=== PATIENT | female | born 1965 | race Caucasian/White ===

== ENCOUNTER 2017-11-06 17:02 | Inpatient (IN) | payer MEDICAID ==
[~2017-11-06] VITALS: Ht 165.1 cm; Wt 54.9 kg
[2017-11-06 17:26] VITALS: BP 125/72
--- NOTE | 2017-11-06 17:35 | NUR ---
pt to lobby awaiting room for MSE. SHANNAN. LAUREN.
--- NOTE | 2017-11-06 19:10 | NUR ---
PT TAKEN TO BED 2.
--- NOTE | 2017-11-06 19:30 | NUR ---
52Y/F PRESENTS TO ER C/O N/V/D. PER PT SHE DRINKS "SIX TALL CANS" OF BEER A DAY AND ALSO DRINKS TEQUILA. SHE HAS HAD VOMITING AND DIARRHEA FOR "COUPLE MONTHS". PT STATES SHE HAS BLOOD IN HER VOMIT AND DIARRHEA. PT ALSO STATES SHE HAS HAD "1 WORM FROM NOSE AND 3 WORMS FROM VAGINA" RECENTLY. NO VOMITING, BLEEDING, OR WORMS NOTED AT THIS TIME. PT IS ANXIOUS IN BED , PT STATES FROM NOT DRINKING TODAY. ABD IS ROUND, SOFT, NON TENDER, ACTIVE BS X4. BL LUNG SOUNDS CLEAR THROUGH OUT, RR EVEN AND UNLABORED. PT AA&OX4, LAYING IN BED, NEICE AT BEDSIDE, VSS, ER MD AWARE OF PT STATUS.
[2017-11-06] MEDS ORDERED: OCTREOTIDE ACETATE 100 MCG/ML VIAL IV ONE (20:20)
[2017-11-06 20:37] LABS: CARBON DIOXIDE 24.6 mmol/L (21-32); CREATININE 0.7 mg/dL (0.6-1.3); POTASSIUM 3.6 mmol/L (3.5-5.1)
[2017-11-06 20:42] LABS: ALBUMIN 2.2 g/dL (3.4-5.0); TOTAL BILIRUBIN 5.1 mg/dL (0.0-1.0)
[2017-11-06] MEDS ORDERED: NACL 0.9% 500 ML IV SCH (20:55)
--- NOTE | 2017-11-06 21:00 | NUR ---
TESSA BAUER SUP. CALLED FOR SANDOSTATIN MEDICATION.
--- NOTE | 2017-11-06 21:15 | NUR ---
PER BHAVANA PT IS A FLIGHT RISK AND HAS BEEN HOSPITALIZED BEFORE AND LEFT AMA, BHAVANA IS CONCERNED THAT SHE WILL DO THE SAME AGAIN, I REASSURED BHAVANA I WOULD TELL STAFF OF THIS INFORMATION.
--- NOTE | 2017-11-06 21:20 | NUR ---
Patient will be admitted to care of [facility]. Admited to TELE. Will go to room 119B . Belongings list completed. Report to LAYLA. I INFORMED LAYLA OF PT'S PREVIOUS ATTEMPT TO LEAVE HOSPITAL.
[2017-11-06 21:30] VITALS: BP 110/63
--- NOTE | 2017-11-06 21:30 | NUR ---
PT ARRIVED TO UNIT VIA GURNEY. RECEIVED REPORT AT BEDSIDE FROM THEATRICAL TROUPER NADER. PT A/OX4 ON ROOM AIR. PT HAS A 20G IV TO RIGHT FOREARM, INFUSING NS ON AN OPEN LINE. SKIN INTACT. SAFETY PRECAUTIONS IN PLACE. UPDATED BOARD. VITAL SIGNS WITHIN NORMAL LIMITS. PT IN STABLE CONDITION, NO SIGNS OF DISTRESS NOTED. BED IN LOW POSITION, CALL LIGHT WITHIN REACH. WILL CONTINUE TO MONITOR.
--- NOTE | 2017-11-06 21:35 | NUR ---
LIZETTE ZARATE CALLED AGAIN, MEDICATION NOT AVAILABLE PER HER.
[2017-11-06 21:40] LABS: APPEARANCE,URINE SL CLOUDY (CLEAR); BILIRUBIN,URINE 1+ (NEGATIVE); BLOOD, URINE NEGATIVE (NEGATIVE); COLOR,URINE YELLOW (YELLOW); LEUKOCYTE ESTERASE ,URINE NEGATIVE (NEGATIVE); NITRITE, URINE NEGATIVE (NEGATIVE); UGLUCOSE NEGATIVE (NEGATIVE)
--- NOTE | 2017-11-06 21:40 | NUR ---
HOUSE SUP. NOTIFIED OF PT BEING TRANSFERRED TO FLOOR, WILL TAKE MEDICATION TO NURSE ON FLOOR .
[2017-11-06] MEDS ORDERED: OCTREOTIDE ACETATE 1000 MCG/5 ML VIAL ONE ×2 (21:52→21:55)
[2017-11-06 22:07] LABS: RBC,URINE NONE SEEN /HPF (0-5); WBC,URINE 0-5 (RARE) /HPF (0-5)
--- NOTE | 2017-11-06 22:15 | NUR ---
SPOKE TO DR SANTOYO ABOUT PT REQUESTING SLEEP MEDICATION, AND ABOUT THE SANDOSTATIN BEING ORDERED VIA IV WHEN WE ONLY HAVE SQ. AGREED TO ORDER SLEEP MEDICATION AND CHANGE SANDOSTATIN ROUTE.
[2017-11-06] MEDS ORDERED: LACTULOSE 20 GM/30 ML UDC PO SCH (22:40)
[2017-11-06] MEDS ORDERED: LORazepam 0.5 MG TAB PO PRN (22:45)
[2017-11-06] MEDS ORDERED: LORazepam 2 MG/ML VIAL IVP PRN (22:45)
[2017-11-06 23:00] VITALS: BP 117/68
[2017-11-06] MEDS: NACL 0.9% 1,000 ML IV SCH (23:02)
[2017-11-06] MEDS ORDERED: OCTREOTIDE ACETATE 100 MCG/ML VIAL SUBQ ONE (23:20)
[2017-11-06] MEDS: traZODone 50 MG TAB PO SCH (23:39)
[2017-11-07 00:01] LABS: PROTHROMBIN TIME 14.5 secs (10.8-13.4)
[2017-11-07 00:03] LABS: FREE T4 (FREE THYROXINE) 1.73 ng/dL (0.76-1.46); MAGNESIUM 1.5 mg/dL (1.8-2.4); PHOSPHORUS 2.2 mg/dL (2.5-4.9); THYROID STIMULATING HORMONE 6.74 uIU/mL (0.34-3.74)
--- NOTE | 2017-11-07 00:15 | NUR ---
VITAL SIGNS WITHIN NORMAL LIMITS. PT IN STABLE CONDITION, NO SIGNS OF DISTRESS NOTED. BED IN LOW POSITION, CALL LIGHT WITHIN REACH. WILL CONTINUE TO MONITOR.
[2017-11-07] MEDS: chlordiazePOXIDE 25 MG CAP PO PRN (00:20)
[2017-11-07 02:25] LABS: BARBITURATE, URINE NEG. ng/ml (NEG <=200); BENZODIAZEPINE, URINE NEG. ng/mL (NEG <=200); CANNABINOID, URINE NEG. ng/mL (NEG <=50); COCAINE, URINE NEG. ng/mL (NEG <=300); OPIATE, URINE NEG. ng/mL (NEG <=2000); PHENCYCLIDINE SCREEN,URINE NEG. ng/mL (NEG <=25)
[2017-11-07 03:45] LABS: HEMOGLOBIN 9.6 g/dL (12.0-16.0); MEAN CORPUSCULAR HEMOGLOBIN 32 pg (27-31); MEAN CORPUSCULAR HGB CONC 33 g/dL (33-37); MEAN CORPUSCULAR VOLUME 96 fL (80-94); RED BLOOD CELL COUNT(AUTO) 3.01 MIL/uL (4.20-5.40); WHITE BLOOD COUNT (AUTO) 20.8 K/uL (4.8-10.8)
[2017-11-07 03:46] LABS: PLATELET COUNT (AUTO) 175 K/uL (140-450); RED CELL DISTRIBUTION WIDTH 16.6 % (11.6-13.7)
[2017-11-07 03:48] LABS: EOSINOPHILS % (MANUAL) 1 % (0-4); LYMPHOCYTES % (MANUAL) 8 % (20-46); MONOCYTES % (MANUAL) 11 % (5-12)
[2017-11-07 04:00] VITALS: BP 107/62
[2017-11-07] MEDS: LORazepam 1 MG TAB PO SCH ×3 (04:18→20:36)
--- NOTE | 2017-11-07 04:30 | NUR ---
VITAL SIGNS WITHIN NORMAL LIMITS. PT IN STABLE CONDITION, NO SIGNS OF DISTRESS NOTED. BED IN LOW POSITION, CALL LIGHT WITHIN REACH. WILL CONTINUE TO MONITOR.
[2017-11-07] MEDS ORDERED: MAG SULF 2000 MG/WATER PREMIX 50 ML IV ONE (04:50)
[2017-11-07] MEDS ORDERED: SODIUM PHOS / POTASSIUM PHOS 1 PKT PDR PO ONE (04:50)
--- NOTE | 2017-11-07 07:33 | NUR ---
ENDORSED PT IN STABLE CONDITION TO DAY SHIFT RN FOR CONTINUITY OF CARE.
[2017-11-07 07:42] LABS: BASOPHILS % (AUTO) 0.2 % (0.0-2.0); EOSINOPHILS # (AUTO) 0.2 K/uL (0-0.4); EOSINOPHILS % (AUTO) 1.2 % (0.0-4.0); HEMATOCRIT 27.5 % (36-48); HEMOGLOBIN 9.7 g/dL (12.0-16.0); LYMPHOCYTES # (AUTO) 1.3 K/uL (2.5-16.5); LYMPHOCYTES % (AUTO) 7.8 % (20.5-51.1); MEAN CORPUSCULAR HEMOGLOBIN 33 pg (27-31); MEAN CORPUSCULAR HGB CONC 35 g/dL (33-37); MEAN CORPUSCULAR VOLUME 93 fL (80-94); MONOCYTES # (AUTO) 1.1 K/uL (0.8-1.0); MONOCYTES % (AUTO) 6.4 % (1.7-9.3); NEUTROPHILS # (AUTO) 14.3 K/uL (1.8-7.7); NEUTROPHILS % (AUTO) 84.4 % (42.2-75.2); PLATELET COUNT (AUTO) 156 K/uL (140-450); RED BLOOD CELL COUNT(AUTO) 2.96 MIL/uL (4.20-5.40); RED CELL DISTRIBUTION WIDTH 15.9 % (11.6-13.7); WHITE BLOOD COUNT (AUTO) 16.9 K/uL (4.8-10.8)
[2017-11-07 07:58] LABS: ANION GAP 10.8 (8-16); CHOL/HDL RATIO 29.9 (1-4.5); CREATININE 0.6 mg/dL (0.6-1.3); MAGNESIUM 1.9 mg/dL (1.8-2.4); PHOSPHORUS 3.4 mg/dL (2.5-4.9); POTASSIUM 3.8 mmol/L (3.5-5.1)
[2017-11-07 08:00] VITALS: BP 114/70
--- NOTE | 2017-11-07 08:00 | NUR ---
RECEIVED PATIENT AT BEDSIDE, ALERT AWAKE ORIENTED X4, NOT IN ANY DISTRESS NOTED. DENIES PAIN AT THIS TIME, NO NAUSEA AND VOMITING NOTED. WITH IVF ON GOING AND INFUSING WELL. INITIAL ASSESSMENT INITIATED. CALL LIGHT WITHIN REACH, NEEDS ATTENDED, WILL CONTINUE TO MONITOR.
--- NOTE | 2017-11-07 08:30 | NUR ---
SEEN BY DR. GREENE AND DISCUSSED PLAN OF CARE WITH THE PATIENT AND FAMILY AT BEDSIDE. PATIENT STILL ON NPO, WAITING FOR GI CONSULT.
[2017-11-07] MEDS ORDERED: LACTULOSE 20 GM/30 ML UDC PO SCH ×2 (09:00→11:00)
[2017-11-07] MEDS: PANTOPRAZOLE 40 MG INJ VIAL IVP SCH (09:24)
[2017-11-07] MEDS: CITALOPRAM 20 MG TAB PO SCH (09:25)
[2017-11-07] MEDS: OCTREOTIDE ACETATE 100 MCG/ML VIAL SUBQ SCH (09:26)
[2017-11-07] MEDS: DOCUSATE SODIUM 100 MG GELCAP PO SCH ×2 (09:26→20:36)
--- NOTE | 2017-11-07 10:00 | NUR ---
PATIENT HAS BEEN SCREENED AND CATEGORIZED HIGH NUTRITION RISK. PATIENT WILL BE SEEN WITHIN 1-2 DAYS OF ADMISSION. 11/06/17-11/07/[address]
[2017-11-07 12:00] VITALS: BP 110/62
--- NOTE | 2017-11-07 13:53 | NUR ---
SEEN BY DR. GREGORIO, WITH ORDER FOR EGD TODAY EXPLAINED TO THE PATIENT AND SON AT BEDSIDE AND VERBALIZED UNDERSTANDING..
--- NOTE | 2017-11-07 13:54 | NUR ---
OFF FLOOR FOR EGD. ALERT AWAKE ORIENTED X4, NOT IN ANY DISTRESS NOTED.
[2017-11-07] MEDS ORDERED: diphenhydrAMINE 50 MG/ML VIAL ONE (14:11)
[2017-11-07] MEDS ORDERED: fentaNYL 0.05 MG/ML VIAL ONE (14:11)
[2017-11-07] MEDS ORDERED: MIDAZOLAM 2 MG/2 ML VIAL ONE (14:11)
--- NOTE | 2017-11-07 14:31 | NUR ---
11/07/17 RD INITIAL ASSESSMENT COMPLETED PLEASE REFER TO NUTRITION ASSESSMENT UNDER CARE ACTIVITY FOR ESTIMATED NUTRITIONAL NEEDS. 1.PT TO REMAIN NPO UNTIL DIET ADVANCEMENT IS MEDICALLY APPROPRIATE 2.ADVANCE DIET APPROPRIATE TO MEET KCAL AND PRO NEEDS. 3.RD TO FOLLOW-UP IN 3-5 DAYS, MODERATE RISK THADDEUS PERDOMO, RD
--- NOTE | 2017-11-07 15:00 | NUR ---
PATIENT BACK FROM EGD, DENIES PAIN, ALERT AWAKE ORIENTED, FAMILY AT BEDSIDE.
--- NOTE | 2017-11-07 15:26 | NUR ---
PATIENT RESTING IN BED WITH NO ACUTE DISTRESS NOTED. REPORT GIVEN TO CHRISTIAN TESFAYE FOR CONTINUITY OF CARE.
--- NOTE | 2017-11-07 15:27 | NUR ---
RECEIVED REPORT FROM DAY NURSE KARON GONZALES. PT IS IN STABLE CONDITION. PT IS AAOX4. S/P EGD. PT IS ON ROOM AIR, RESPIRATIONS ARE EVEN AND UNLABORED. IV TO R FA 20G PATENT AND INTACT, INFUSING WELL. SKIN IS WARM AND DRY TO TOUCH. SKIN IS INTACT. INITIAL ASSESSMENT COMPLETED. PLAN OF CARE DISCUSSED WITH PT, VERBALIZED UNDERSTANDING. ALL SAFETY PRECAUTIONS MET, CALL LIGHT WITHIN REACH, WILL CONTINUE TO MONITOR
--- NOTE | 2017-11-07 15:46 | NUR ---
CHECKED PTS B/P IT WAS 83/49 PULSE 87, O2 SAT: 92% TEMP 98.9, MADE DR. MAY AWARE.
[2017-11-07 16:00] VITALS: BP 83/49
--- NOTE | 2017-11-07 16:05 | NUR ---
FAMILY STATED THAT PT HAD "A COUPLE BITES OF FOOD AND STARTED TO VOMIT", NOTIFIED DR. WALSH, SHE STATED SHE WILL START CLEAR LIQUID DIET
[2017-11-07] MEDS: ONDANSETRON 4 MG/2 ML VIAL IVP PRN (16:38)
[2017-11-07] MEDS: FERROUS SULFATE 325 MG TABEC PO SCH (16:46)
--- NOTE | 2017-11-07 18:00 | NUR ---
FAMILY STATED, "SHE IS NOT TOLERATING LIQUIDS EITHER, SHE CANNOT TAKE ANYTHING, PLEASE PUT HER ON NPO DIET, SHE THROWS EVERYTHING UP." NOTIFIED DR. WALSH AND DR. SANTOYO, AGREED TO PUT NPO
[2017-11-07] MEDS: NACL 0.9% 1,000 ML IV SCH (18:24)
[2017-11-07 20:00] VITALS: BP 118/67
[2017-11-07] MEDS: traZODone 50 MG TAB PO SCH (20:37)
[2017-11-07] MEDS ORDERED: traZODone 50 MG TAB PO SCH (21:00)
[2017-11-08] VITALS: BP 112/60
[2017-11-08] MEDS: NACL 0.9% 1,000 ML IV SCH ×2 (01:07→23:55)
[2017-11-08 04:00] VITALS: BP 117/60
[2017-11-08] MEDS: LORazepam 1 MG TAB PO SCH ×3 (05:36→20:50)
[2017-11-08 06:54] LABS: HEMATOCRIT 26.5 % (36-48); HEMOGLOBIN 9.1 g/dL (12.0-16.0); MEAN CORPUSCULAR HEMOGLOBIN 33 pg (27-31); MEAN CORPUSCULAR HGB CONC 34 g/dL (33-37); MEAN CORPUSCULAR VOLUME 96 fL (80-94); PLATELET COUNT (AUTO) 168 K/uL (140-450); RED BLOOD CELL COUNT(AUTO) 2.78 MIL/uL (4.20-5.40); RED CELL DISTRIBUTION WIDTH 15.4 % (11.6-13.7)
--- NOTE | 2017-11-08 07:05 | NUR ---
PT WHEELED OFF TO CT IN STABLE CONDITION. DISCONNECTED IV, IV PATENT AND INTACT. PT CONFUSED AND WALKED TO BATHROOM, HELPED PT TO WHEEL CHAIR. PT IN WHEEL CHAIR WITH HER BLANKETS WITH NO COMPLAINTS.
--- NOTE | 2017-11-08 07:21 | NUR ---
REPORT GIVEN TO DAY NURSE FLORESITA RN FOR CONTINUITY OF CARE, PT IN STABLE CONDITION. NO S/S OF DISTRESS NOTED
--- NOTE | 2017-11-08 07:25 | NUR ---
RECEIVED PATIENT REPORT AT BEDSIDE FROM NIGHT NURSE. PATIENT IS LEAVING FOR CT PROCEDURE. PATIENT IS AAO AND SHOWS NO S/S OF ACUTE DISTRESS ON ROOM AIR. PATIENT DENIES PAIN. IV NOTED ON THE RT FA 20G PATENT AND INTACT. SKIN IS INTACT. NOTED JAUNDICE SCLERA. FALL RISK PROTOCOL IN PLACE, BED IN LOW POSITION WITH CALL LIGHT WITHIN REACH. PATIENT WAS EXPLAINED POC FOR TODAY AND VERBALIZED UNDERSTANDING. WILL CONTINUE TO MONITOR.
[2017-11-08 07:26] LABS: ANION GAP 9.1 (8-16); CARBON DIOXIDE 25.4 mmol/L (21-32); CREATININE 0.7 mg/dL (0.6-1.3); POTASSIUM 3.5 mmol/L (3.5-5.1)
--- NOTE | 2017-11-08 07:40 | NUR ---
FOUND PATIENT WITH IV DISCONTINUED WITH CANNULA INTACT. NEW BEDDING WAS GIVEN. EVS WAS CALLED TO CLEAN UP ROOM. NEW IV ACCESS SUCCESSFULLY ATTEMPTED ON THE LFT FA 22G WITH IVF'S INFUSING WELL. ALL OF PATIENT'S NEEDS MET AT THIS TIME. WILL CONTINUE TO MONITOR.
[2017-11-08 08:00] VITALS: BP 112/63
[2017-11-08] MEDS: PANTOPRAZOLE 40 MG INJ VIAL IVP SCH (09:00)
[2017-11-08] MEDS: FERROUS SULFATE 325 MG TABEC PO SCH ×2 (09:00→17:24)
[2017-11-08] MEDS: THIAMINE 100 MG TAB PO SCH (09:01)
[2017-11-08] MEDS: LACTULOSE 20 GM/30 ML UDC PO SCH (09:01)
[2017-11-08] MEDS: CITALOPRAM 20 MG TAB PO SCH (09:01)
[2017-11-08] MEDS: DOCUSATE SODIUM 100 MG GELCAP PO SCH ×2 (09:01→20:49)
[2017-11-08] MEDS: FOLIC ACID 1 MG TAB PO SCH (09:01)
[2017-11-08] MEDS: OCTREOTIDE ACETATE 100 MCG/ML VIAL SUBQ SCH (09:02)
--- NOTE | 2017-11-08 09:10 | NUR ---
ADMINISTERED SCHEDULED MEDICATIONS. PATIENT SWALLOWED WITHOUT DIFFICULTY. FAMILY AT BEDSIDE AND STATED, "QUE PASO, PORQUE ESTABA [place]? QUIEN LE ALESSIO EL IV." FAMILY WAS EXPLAINED IV WAS FOUND DISCONTINUED EARLIER AND BLOOD WAS CLEANED UP FROM WHEN THE IV WAS FOUND OUT. THEY ASKED WHO DID IT, PATIENT IN BED A STATED SHE KNOWS WHO DID IT, SHE STATED, " ERA LA ENFERMA DE LA NOCHE." PATIENT AND FAMILY WAS EXPLAINED THAT I DID NOT SEE WHAT HAPPENED BUT IV WAS FOUND DISCONTINUED AND NEW IV ACCESS IS INFUSING IVF'S WELL. WILL CONTINUE TO MONITOR.
[2017-11-08] MEDS: ONDANSETRON 4 MG/2 ML VIAL IVP PRN ×2 (10:38→18:22)
--- NOTE | 2017-11-08 10:39 | NUR ---
PATIENT C/O NAUSEA AND VOMITING. FAMILY STATED BLOODY EMESIS IN TOILET. FAMILY STATED CONCERNS OF ORDER OF DISCHARGE. WILL NOTIFY
--- NOTE | 2017-11-08 10:42 | NUR ---
DR MAY NOTIFIED OF PATIENT'S CONCERNS TO NOT BE DISCHARGED TODAY.
--- NOTE | 2017-11-08 11:30 | NUR ---
PATIENT HAS FAMILY AT BEDSIDE. PATIENT DENIES PAIN AT THIS TIME. NO N/V. ALL NEEDS MET AT THIS TIME. WILL CONTINUE TO MONITOR.
[2017-11-08 12:00] VITALS: BP 107/59
--- NOTE | 2017-11-08 12:50 | NUR ---
PATIENT FAMILY STATED THEY WANT PATIENT TO LEAVE AMA. PATIENT AGREES TO LEAVE AMA. PATIENT AND FAMILY REFUSE TO SEE DR'S. PATIENT WAS EXPLAINED THE RISKS OF LEAVING AMA. PATIENT AND FAMILY STATED, " NO ME GUSTO QUE ESTABA [place], SE PODIA MURIR. YO ESTUVE [place] MUCHO CUANDO YO ERA PACIENTE AQUI Y NADIE ME AYUDO. CONOSCO A ALGUIEN QUE MURIO ASI." PATIENT'S FAMILY ARE UPSET THAT PATIENTS IV WAS OUT AND SHE WAS BLEEDING EARLIER THIS MORNING, THEY STATE THEY KNOW SOMEONE THAT THAT WAY. PATIENT FAMILY ARE INSISTING TO LEAVE, UNTIL THEY CALLED ANOTHER FAMILY MEMBER AND NOW THEY DON'T KNOW IF THEY WANT TO LEAVE AMA ANYMORE.
--- NOTE | 2017-11-08 13:15 | NUR ---
DR GUILLEN AT BEDSIDE WITH FAMILY. PLAN TO DISCHARGE PATIENT. FAMILY AGREES TO POC. WILL AWAIT ORDERS.
--- NOTE | 2017-11-08 13:58 | NUR ---
ADMINISTERED SCHEDULED MEDICATIONS. PATIENT SWALLOWED WITHOUT DIFFICULTY. WILL CONTINUE TO MONITOR. FAMILY AT BEDSIDE.
[2017-11-08 14:11] LABS: LYMPHOCYTES % (MANUAL) 2 % (20-46); MONOCYTES % (MANUAL) 2 % (5-12)
[2017-11-08] MEDS ORDERED: LACTULOSE 20 GM/30 ML UDC PO SCH (14:45)
[2017-11-08] MEDS ORDERED: BISACODYL 10 MG SUPP RC SCH (14:47)
--- NOTE | 2017-11-08 15:30 | NUR ---
PATIENT FAMILY NOTIFIED OF ELEVATED WBC'S AND DC IS CANCELLED.
[2017-11-08 16:00] VITALS: BP 124/69
--- NOTE | 2017-11-08 16:00 | NUR ---
ADMINISTERED SCHEDULED MEDICATIONS. PATIENT TOLERATED ACTIVITY WELL. PATIENT'S NEEDS MET AT THIS TIME. WILL CONTINUE TO MONITOR.
--- NOTE | 2017-11-08 17:30 | NUR ---
ADMINISTERED SCHEDULED MEDICATIONS. IV ABX INFUSING WELL AT THIS TIME. PATIENT'S NEEDS MET AT THIS TIME. WILL CONTINUE TO MONITOR.
--- NOTE | 2017-11-08 17:45 | NUR ---
PATIENT C/O COUGH. NOTIFIED DR FOR COUGH MEDICINE. DR GUILLEN AWARE. WILL CONTINUE TO MONITOR.
[2017-11-08] MEDS ORDERED: PIPER/TAZO 3.375GM/D5W PREMIX 50 ML IV SCH (18:00)
[2017-11-08] MEDS: guaiFENesin 20 MG/ML UDC PO PRN (18:22)
--- NOTE | 2017-11-08 18:26 | NUR ---
PATIENT WAS GIVEN PRN MEDICATION FOR COUGH AND ZOFRAN 4 MG IVP FOR NAUSEA. PATIENT HAS FAMILY AT BEDSIDE TO ASSIST WITH EATING DINNER. WILL CONTINUE TO MONITOR.
--- NOTE | 2017-11-08 19:19 | NUR ---
GAVE PATIENT REPORT AT BEDSIDE TO NIGHT NURSE. PATIENT ENDORSED IN STABLE CONDITION.
[2017-11-08 20:00] VITALS: BP 104/77
[2017-11-08] MEDS: traZODone 50 MG TAB PO SCH (20:49)
[2017-11-08] MEDS: AMOXICILLIN 500 MG CAP PO SCH (20:50)
[2017-11-08] MEDS: CLARITHROMYCIN 500 MG TAB PO SCH (20:50)
--- NOTE | 2017-11-08 20:50 | NUR ---
SEEN PT AWAKE, ALERT AND ORIENTED, SPEAKS KOREAN MOSTLY. FAMILY AT BEDSIDE. FAMILY MEMBER SAID PT IS AWARE OF WHAT'S HAPPENING AND WHERE SHE'S AT. INITIAL ASSESSMENT DONE. PT IS JAUNDICED. VITAL SIGNS CHECKED. TEMP=99.9 EXTRA BLANKET REMOVED. INFORMED FAMILY THAT PT'S BODY NEEDS TO COOL DOWN. THEY VERBALIZED UNDERSTANDING. APPLIED ICE PACK AND WILL CALL MD FOR MEDICATION FOR FEVER. PT WANTS TO GO BATHROOM. PT STEADY ON HER FEET W/ STANDBY ASSIST. MEDICATIONS GIVEN W/ TEACHINGS AND TOLERATED IT.
[2017-11-08] MEDS ORDERED: BENZOCAINE/MENTHOL 1 LOZ MM PRN (21:15)
--- NOTE | 2017-11-08 22:30 | NUR ---
SEEN PT AWAKE AND WANTS TO GET UP TO THE BATHROOM. ASSISTED PT TO THE BATHROOM. PT HAD GREEN, LOOSE, MEDIUM AMOUNT OF STOOL. PERICARE RENDERED. BEDDINGS CHANGED BY ART HISTORIAN. PT WENT BACK TO BED. PT STATES, "I FEEL COLD". INFORMED PT THAT SHE STILL HAS LOW GRADE FEVER AND CAN'T COVER HERSELF W/ EXTRA BLANKET. PT APPEARS TO UNDERSTAND. ICE PACK STILL IN PLACED. WILL CONTINUE TO MONITOR.
--- NOTE | 2017-11-08 23:50 | NUR ---
SEEN PT AWAKE. VITAL SIGNS CHECKED. LHAN=369.2 ICE PACK REINFORCED. WILL MEDICATE PT W/ TYLENOL. PT STILL COUGHING AND SLIGHTLY VOMITED SMALL AMOUNT OF RED EMESIS. WILL MEDICATE W/ ZOFRAN. PT TRIES TO GET UP. PT STATES " I WANT TO GO BATHROOM." PT'S IV DISCONNECTED AND ASSISTED TO THE BATHROOM. PT HAD MEDIUM AMOUNT OF YELLOW STOOL. PERICARE RENDERED. PT ASSISTED BACK TO BED. PT KEPT ASKING FOR BLANKET. EXPLAINED TO PT THAT SHE HAS FEVER. PT APPEARS TO UNDERSTOOD. CALL LIGHT W/IN REACH. INSTRUCTED PT TO CALL WHEN IN NEED. CALL LIGHT W/IN REACH. WILL CONTINUE TO MONITOR.
[2017-11-08] MEDS: ACETAMINOPHEN 325 MG TAB PO PRN (23:52)
[2017-11-08] MEDS: chlordiazePOXIDE 25 MG CAP PO PRN (23:54)
[2017-11-09] VITALS: BP 95/52
[2017-11-09] MEDS: guaiFENesin 20 MG/ML UDC PO PRN ×2 (00:04→07:03)
[2017-11-09] MEDS: ONDANSETRON 4 MG/2 ML VIAL IVP PRN (00:04)
--- NOTE | 2017-11-09 01:00 | NUR ---
PT MOVED TO RM 108B FOR CLOSE MONITORING. PT ASLEEP BUT AROUSABLE. TEMP RECHECKED:99.8 WILL CONTINUE TO MONITOR.
[2017-11-09 04:05] VITALS: BP 95/54
--- NOTE | 2017-11-09 04:10 | NUR ---
AWAKEN PT. VITAL SIGNS CHECKED. PT APPEARS TO BE NOT IN DISTRESS. TEMP=98.1 ICE STILL IN PLACED. SAFETY REINFORCED. CALL LIGHT W/IN REACH.
[2017-11-09] MEDS: LORazepam 1 MG TAB PO SCH ×3 (05:00→21:42)
--- NOTE | 2017-11-09 06:30 | NUR ---
SEEN PT UP AND HAD ACCIDENT IN BED AND GOWN. BEDDINGS AND GOWN CHANGED. PT KEPT COMFORTABLE IN BED. SAFETY REINFORCED. CALL LIGHT W/IN REACH. WILL CLOSELY MONITOR.
--- NOTE | 2017-11-09 07:25 | NUR ---
RECEIVED REPORT FROM PRE[facility] REPAIRS NURSE SAUL AT BEDSIDE FOR CONTINUITY OF CARE. PT IS AWAKE AND ORIENTED. INTRODUCED SELF AND UPDATED BOARD. PT IN STABLE CONDITION.
[2017-11-09 08:00] VITALS: BP 116/69
[2017-11-09 08:09] LABS: HEMATOCRIT 31.2 % (36-48); HEMOGLOBIN 10.2 g/dL (12.0-16.0); MEAN CORPUSCULAR HEMOGLOBIN 32 pg (27-31); MEAN CORPUSCULAR HGB CONC 33 g/dL (33-37); MEAN CORPUSCULAR VOLUME 98 fL (80-94); PLATELET COUNT (AUTO) 191 K/uL (140-450); RED BLOOD CELL COUNT(AUTO) 3.21 MIL/uL (4.20-5.40); RED CELL DISTRIBUTION WIDTH 15.7 % (11.6-13.7); WHITE BLOOD COUNT (AUTO) 17.3 K/uL (4.8-10.8)
[2017-11-09 08:16] LABS: ANION GAP 13.4 (8-16); CARBON DIOXIDE 25.3 mmol/L (21-32); CREATININE 0.7 mg/dL (0.6-1.3); POTASSIUM 3.7 mmol/L (3.5-5.1)
[2017-11-09] MEDS: DOCUSATE SODIUM 100 MG GELCAP PO SCH ×2 (09:00→21:00)
[2017-11-09] MEDS: LACTULOSE 20 GM/30 ML UDC PO SCH (09:00)
[2017-11-09 09:22] LABS: LYMPHOCYTES % (MANUAL) 10 % (20-46); MONOCYTES % (MANUAL) 5 % (5-12)
[2017-11-09] MEDS: PANTOPRAZOLE 40 MG INJ VIAL IVP SCH (09:36)
[2017-11-09] MEDS: CLARITHROMYCIN 500 MG TAB PO SCH ×2 (09:36→21:42)
[2017-11-09] MEDS: LACTOBACILLUS RHAMNOSUS GG 1 EACH CAP PO SCH (09:37)
[2017-11-09] MEDS: FOLIC ACID 1 MG TAB PO SCH (09:37)
[2017-11-09] MEDS: OCTREOTIDE ACETATE 100 MCG/ML VIAL SUBQ SCH (09:37)
[2017-11-09] MEDS: FERROUS SULFATE 325 MG TABEC PO SCH ×2 (09:37→17:11)
[2017-11-09] MEDS: THIAMINE 100 MG TAB PO SCH (09:37)
[2017-11-09] MEDS: CITALOPRAM 20 MG TAB PO SCH (09:37)
[2017-11-09] MEDS: AMOXICILLIN 500 MG CAP PO SCH ×2 (11:27→21:41)
--- NOTE | 2017-11-09 11:30 | NUR ---
ADMINISTERED SCHEDULED MEDS. HELP COLACE AND LACTULOSE DUE TO PT HAVING LOOSE STOOL. PT TOLERATED GIVEN MEDS WELL. PT'S NIECE IS AT BEDSIDE DOING PT'S HAIR AND MAKE-UP. NO SIGNS OF DISTRESS. PT DENIES PAIN. WILL CONTINUE TO MONITOR.
[2017-11-09 16:00] VITALS: BP 116/64
--- NOTE | 2017-11-09 17:05 | NUR ---
PT HAD TEMP OF 100.5. ADMINISTERED TYLENOL FOR FEVER. APPLIED ICE PACKS. PROVIDED COOLING MEASURES. PT TOLERATING WELL. WILL CONTINUE TO MONITOR.
[2017-11-09] MEDS: ACETAMINOPHEN 325 MG TAB PO PRN (17:11)
[2017-11-09] MEDS: chlordiazePOXIDE 25 MG CAP PO PRN (17:12)
--- NOTE | 2017-11-09 19:25 | NUR ---
ENDORSED PT TO CONTRACT MAIL CARRIER NURSE NOEMY AT BEDSIDE FOR CONTINUITY OF CARE. PT IN STABLE CONDITION.
--- NOTE | 2017-11-09 19:26 | NUR ---
RECEIVED REPORT AT BEDSIDE FROM DAY SHIFT RN. PT A/OX4 ON ROOM AIR. PT HAS A 20G IV TO LEFT WRIST. SKIN INTACT. SAFETY PRECAUTIONS IN PLACE. UPDATED BOARD. VITAL SIGNS WITHIN NORMAL LIMITS. PT IN STABLE CONDITION, NO SIGNS OF DISTRESS NOTED. BED IN LOW POSITION, CALL LIGHT WITHIN REACH. WILL CONTINUE TO MONITOR.
[2017-11-09] MEDS: traZODone 50 MG TAB PO SCH (21:43)
--- NOTE | 2017-11-09 21:45 | NUR ---
ADMINISTERED SCHEDULED MEDICATIONS, PT TOLERATED WELL.
--- NOTE | 2017-11-10 00:15 | NUR ---
VITAL SIGNS WITHIN NORMAL LIMITS. TEMPERATURE DOWN TO 98.6. PT IN STABLE CONDITION, NO SIGNS OF DISTRESS NOTED. BED IN LOW POSITION, CALL LIGHT WITHIN REACH. WILL CONTINUE TO MONITOR.
[2017-11-10 01:00] VITALS: BP 96/58
[2017-11-10] MEDS: LORazepam 1 MG TAB PO SCH ×3 (05:11→21:29)
--- NOTE | 2017-11-10 07:24 | NUR ---
ENDORSED PT IN STABLE CONDITION TO DAY SHIFT RN FOR CONTINUITY OF CARE.
--- NOTE | 2017-11-10 07:27 | NUR ---
RECEIVED PATIENT REPORT AT BEDSIDE FROM NIGHT NURSE. PATIENT IS AAOX2 AND SHOWS NO S/S OF ACUTE DISTRESS ON ROOM AIR. SKIN INTACT. DENIES PAIN. NOTED IV ON THE LEFT FA WITH IVF'S INFUSING WELL. PATIENT WAS EXPLAINED POC FOR TODAY AND VERBALIZED UNDERSTANDING. FALL AND SAFETY PRECAUTIONS IN PLACE, BED IN LOW POSITION WITH CALL LIGHT WITHIN REACH. FAMILY AT BEDSIDE.
[2017-11-10 08:00] VITALS: BP 109/67
[2017-11-10 08:19] LABS: PROTHROMBIN TIME 17.8 secs (10.8-13.4)
[2017-11-10] MEDS: FERROUS SULFATE 325 MG TABEC PO SCH (08:56)
[2017-11-10] MEDS: DOCUSATE SODIUM 100 MG GELCAP PO SCH ×2 (08:57→21:30)
[2017-11-10] MEDS: CITALOPRAM 20 MG TAB PO SCH (08:57)
[2017-11-10] MEDS: AMOXICILLIN 500 MG CAP PO SCH ×2 (08:57→21:28)
[2017-11-10] MEDS: CLARITHROMYCIN 500 MG TAB PO SCH ×2 (08:58→21:29)
[2017-11-10] MEDS: LACTOBACILLUS RHAMNOSUS GG 1 EACH CAP PO SCH (08:58)
[2017-11-10] MEDS: PANTOPRAZOLE 40 MG INJ VIAL IVP SCH (08:58)
[2017-11-10] MEDS: FOLIC ACID 1 MG TAB PO SCH (08:58)
[2017-11-10] MEDS: OCTREOTIDE ACETATE 100 MCG/ML VIAL SUBQ SCH (08:58)
[2017-11-10] MEDS: THIAMINE 100 MG TAB PO SCH (08:59)
[2017-11-10] MEDS: ACETAMINOPHEN 325 MG TAB PO PRN (08:59)
[2017-11-10] MEDS: LACTULOSE 20 GM/30 ML UDC PO SCH ×2 (09:00→18:39)
[2017-11-10] MEDS: guaiFENesin 20 MG/ML UDC PO PRN (09:00)
--- NOTE | 2017-11-10 09:15 | NUR ---
ADMINISTERED SCHEDULED MEDICATIONS. PATIENT SWALLOWED WITHOUT DIFFICULTY. PATIENT'S NEEDS MET AT THIS TIME. FAMILY AT BEDSIDE.
[2017-11-10] MEDS: NACL 0.9% 1,000 ML IV SCH ×2 (09:52→22:55)
--- NOTE | 2017-11-10 10:20 | NUR ---
PATIENT FAMILY STATED, "LE SALIO PLASTICO EN EL POLINA." PATIENT'S SISTER STATED, "ALGUIEN AQUI LE HEIDI PLASTICO PARA COMER." DR QUEVEDO NOTIFIED. AND RN WITH FAMILIY. PATIENT'S SISTER EXPLAINED TO SHE FOUND PLASTIC IN THE PATIENT'S BM.
[2017-11-10 11:13] LABS: ANION GAP 14.9 (8-16); CARBON DIOXIDE 20.6 mmol/L (21-32); CREATININE 0.6 mg/dL (0.6-1.3); POTASSIUM 3.5 mmol/L (3.5-5.1)
[2017-11-10 11:14] LABS: MAGNESIUM 1.9 mg/dL (1.8-2.4)
[2017-11-10 11:57] LABS: HEMATOCRIT 26.8 % (36-48); MEAN CORPUSCULAR HEMOGLOBIN 33 pg (27-31); MEAN CORPUSCULAR HGB CONC 34 g/dL (33-37); MEAN CORPUSCULAR VOLUME 96 fL (80-94); PLATELET COUNT (AUTO) 173 K/uL (140-450); RED BLOOD CELL COUNT(AUTO) 2.78 MIL/uL (4.20-5.40); RED CELL DISTRIBUTION WIDTH 15.8 % (11.6-13.7); WHITE BLOOD COUNT (AUTO) 17.6 K/uL (4.8-10.8)
[2017-11-10] MEDS ORDERED: LACTULOSE 20 GM/30 ML UDC PO SCH (13:00)
[2017-11-10 13:15] LABS: LYMPHOCYTES % (MANUAL) 10 % (20-46)
[2017-11-10 13:16] LABS: EOSINOPHILS % (MANUAL) 0 % (0-4); MONOCYTES % (MANUAL) 7 % (5-12)
[2017-11-10 13:17] LABS: BASOPHILS % (MANUAL) 0 % (0-2)
--- NOTE | 2017-11-10 13:30 | NUR ---
ADMINISTERED SCHEDULED MEDICATIONS. PATIENT SWALLOWED WITHOUT DIFFICULTY. PATIENT DENIES N/V AND PAIN. PATIENT'S SISTER AT BEDSIDE AND STATED, "ENCONTRE MAS EN EL POLINA." WHEN ASKED WHAT DID SHE MEAN, PATIENT'S SISTER IGNORED QUESTION AND STATED, " HORNORMA SPENCE CO ADAM." PATIENT'S SISTER STATES SHE FOUND MORE OF SOMETHING IN PATIENT'S BM; HOWEVER, DOES NOT WANT TO TALK TO DR AND STATES THE FAMILY WILL BE HERE SOON.
--- NOTE | 2017-11-10 15:30 | NUR ---
PATIENT FAMILY AT BEDSIDE. PATIENT SHOWS NO S/S OF ACUTE DISTRESS ON ROOM AIR. ALL NEEDS MET AT THIS TIME.
[2017-11-10 16:00] VITALS: BP 101/68
[2017-11-10] MEDS ORDERED: LACT10CA PO (16:14)
[2017-11-10] MEDS ORDERED: LORA0.5T6 PO (16:14)
[2017-11-10] MEDS ORDERED: OMEP20TC12 PO (16:14)
[2017-11-10] MEDS ORDERED: AMOX500C25 PO (16:14)
[2017-11-10] MEDS ORDERED: LACT10SO11 PO (16:14)
[2017-11-10] MEDS ORDERED: CLAR500T PO (16:14)
--- NOTE | 2017-11-10 18:00 | NUR ---
PATIENT HAS FAMILY AT BEDSIDE. PATIENT IS RESTING AND DENIES PAIN. PATIENT SHOWS NO S/S OF ACUTE DISTRESS AT THIS TIME.
--- NOTE | 2017-11-10 19:10 | NUR ---
PATIENT REPORT GIVEN TO NIGHT NURSE. PATIENT ENDORSED IN STABLE CONDITION.
[2017-11-10] MEDS: traZODone 50 MG TAB PO SCH (21:29)
--- NOTE | 2017-11-10 22:00 | NUR ---
SPOKE WITH FAMILY AND PT ABOUT KEEPING BLANKETS OFF OF PATIENT DUE TO HER TEMPERATURE. EDUCATED THEM ON COOLING MEASURES, THEY VERBALIZED UNDERSTANDING.
--- NOTE | 2017-11-10 22:18 | NUR ---
WENT IN TO PT ROOM TO DOUBLE CHECK THAT PT WAS ON COOLING MEASURES AND PT WAS ALL COVERED UP IN BLANKETS. REMOVED BLANKETS FROM PT AND ASKED FAMILY TO TAKE BLANKETS HOME.
--- NOTE | 2017-11-10 23:01 | NUR ---
PT HAD A BOWEL MOVEMENT AND IT GOT ON THE FLOOR. CLEANED WITH TOWELS AND ASKED EVS TO MOP FLOOR. ASKED PT FAMILY TO NOT COVER PT TOO MUCH, BECAUSE COOLING MEASURES ARE IN PLACE, FAMILY VERBALIZED UNDERSTANDING. PT IN STABLE CONDITION, WILL CONTINUE TO MONITOR.
[2017-11-11] VITALS: BP 95/61
--- NOTE | 2017-11-11 00:15 | NUR ---
VITAL SIGNS WITHIN NORMAL LIMITS. PT WAS COVERED WITH TWO VERY THICK BLANKETS, FAMILY NO LONGER HERE. UNCOVERED PT. PT IN STABLE CONDITION, NO SIGNS OF DISTRESS NOTED. BED IN LOW POSITION, CALL LIGHT WITHIN REACH. WILL CONTINUE TO MONITOR.
--- NOTE | 2017-11-11 04:15 | NUR ---
PT COVERED UP AGAIN WITH TWO THICK BLANKETS. PT TEMP NOW 99.8, UNCOVERED PT AND EDUCATED PT AGAIN ON COOLING MEASURES AND HER TEMPERATURE, PT VERBALIZED UNDERSTANDING.
[2017-11-11] MEDS: LORazepam 1 MG TAB PO SCH ×2 (04:27→13:52)
--- NOTE | 2017-11-11 07:15 | NUR ---
ENDORSED PT TO DAY SHIFT RN, IN STABLE CONDITION, FOR CONTINUITY OF CARE.
[2017-11-11 07:31] LABS: HEMATOCRIT 25.4 % (36-48); HEMOGLOBIN 8.5 g/dL (12.0-16.0); MEAN CORPUSCULAR HEMOGLOBIN 32 pg (27-31); MEAN CORPUSCULAR HGB CONC 33 g/dL (33-37); MEAN CORPUSCULAR VOLUME 95 fL (80-94); PLATELET COUNT (AUTO) 179 K/uL (140-450); RED BLOOD CELL COUNT(AUTO) 2.68 MIL/uL (4.20-5.40); RED CELL DISTRIBUTION WIDTH 15.7 % (11.6-13.7); WHITE BLOOD COUNT (AUTO) 12.9 K/uL (4.8-10.8)
[2017-11-11 07:46] LABS: ANION GAP 10.7 (8-16); CARBON DIOXIDE 23.7 mmol/L (21-32); CREATININE 0.6 mg/dL (0.6-1.3); POTASSIUM 3.4 mmol/L (3.5-5.1)
[2017-11-11 08:00] VITALS: BP 103/56
[2017-11-11 08:26] LABS: MAGNESIUM 1.8 mg/dL (1.8-2.4)
[2017-11-11 08:30] LABS: EOSINOPHILS % (MANUAL) 2 % (0-4); LYMPHOCYTES % (MANUAL) 10 % (20-46); MONOCYTES % (MANUAL) 11 % (5-12)
[2017-11-11] MEDS: NACL 0.9% 1,000 ML IV SCH (08:54)
--- NOTE | 2017-11-11 08:56 | NUR ---
PT RECEIVED FROM [facility] NURSE, AWAKE ALERT AND ORIENTED TO NAME AND PLACE. NO PAIN OR RESP DISTRESS NOTED.P PT IS ABLE TO FOLLOW COMMAND APPROPRIATELY VIA MOHAWK.
[2017-11-11] MEDS: OCTREOTIDE ACETATE 100 MCG/ML VIAL SUBQ SCH (09:00)
[2017-11-11] MEDS: PANTOPRAZOLE 40 MG INJ VIAL IVP SCH (09:29)
[2017-11-11] MEDS: LACTOBACILLUS RHAMNOSUS GG 1 EACH CAP PO SCH (09:31)
[2017-11-11] MEDS: THIAMINE 100 MG TAB PO SCH (09:31)
[2017-11-11] MEDS: CITALOPRAM 20 MG TAB PO SCH (09:32)
[2017-11-11] MEDS: LACTULOSE 20 GM/30 ML UDC PO SCH ×2 (09:35→13:52)
[2017-11-11] MEDS: FOLIC ACID 1 MG TAB PO SCH (09:36)
[2017-11-11] MEDS: CLARITHROMYCIN 500 MG TAB PO SCH (10:27)
[2017-11-11] MEDS: DOCUSATE SODIUM 100 MG GELCAP PO SCH (10:28)
[2017-11-11] MEDS: AMOXICILLIN 500 MG CAP PO SCH (10:28)
--- NOTE | 2017-11-11 11:20 | NUR ---
PT HAS BEEN ASSISTED IN AND OUT OF BED TO THE BATHROOM FOR BOWEL MOVEMENT. PT'S SON REMAINS AT THE BED SIDE. NO ACUTE DISTRESS OR ANY CONDITION CHANGES NOTED.
[2017-11-11] MEDS: ONDANSETRON 4 MG/2 ML VIAL IVP PRN (14:06)
--- NOTE | 2017-11-11 14:41 | NUR ---
PT VOMITED ABOUT 60 ML OF BROWN DIGESTED FOOD AFTER LUNCH. ZOFRAN 4 MG IVP GIVEN. PT IS SITTING IN BED TALKING TO HER SON. NO S/S OF WITHDRAWAL NOTED. SIDE RAILS UP X2, BED IN LOW POSITION, CALL LIGHT WITHIN REACH.
[2017-11-11 15:07] LABS: HEPATITIS A ANTIBODY IGM Negative (Negative); HEPATITIS B CORE AB TOTAL Negative (Negative); HEPATITIS B SURFACE ANTIBODY Reactive (.); HEPATITIS B SURFACE ANTIGEN Negative (Negative)
[2017-11-11 16:00] VITALS: BP 118/56
--- NOTE | 2017-11-11 18:40 | NUR ---
SL REMOVED PRIOR TO LEAVING.
--- NOTE | 2017-11-11 18:40 | NUR ---
DISCHARGE EDUCATION ON MEDICATION, F/U CHRISTAL WITH DR MURPHY'S GOUT INCLUDING DATE AND TIME, S/S OF INFECTION AND WHEN TO RETURN TO ED, INFO ON CESSATION OF ALCOHOL PROVIDED TO PT'S SON. VERBAL UNDERSTANDING OF EDUCATION RECEIVED FROM HIM. PT'S SON SIGNED DC PAPERS FOR PT. PT DC VIA W/C. NO STATUS CHANGES PRIOR TO LEAVING.
== END 2017-11-11 18:45 | disposition home or self-care (01) | DRG 241 ==
LOC: MED 17:02 → MTU 20:28
PROVIDERS: ADMIT Family Medicine Sports Medicine; ATTEND Family Medicine Sports Medicine
PROC: 0DB68ZX Excision of Stomach, Via Natural or Artificial Opening Endoscopic, Diagnostic (ICD-10-PCS; principal; 2017-11-07 13:45)
DX: K29.71 Gastritis, unspecified, with bleeding (principal); G92 Toxic encephalopathy; E43 Unspecified severe protein-calorie malnutrition; K76.6 Portal hypertension; F32.2 Major depressive disorder, single episode, severe without psychotic features; K70.30 Alcoholic cirrhosis of liver without ascites; E87.2 Acidosis; K25.4 Chronic or unspecified gastric ulcer with hemorrhage; I85.10 Secondary esophageal varices without bleeding; K31.89 Other diseases of stomach and duodenum; K26.9 Duodenal ulcer, unspecified as acute or chronic, without hemorrhage or perforation; K72.90 Hepatic failure, unspecified without coma; E86.0 Dehydration; F10.129 Alcohol abuse with intoxication, unspecified; E87.1 Hypo-osmolality and hyponatremia; F41.9 Anxiety disorder, unspecified; R74.0 Nonspecific elevation of levels of transaminase and lactic acid dehydrogenase [LDH]; Z68.20 Body mass index [BMI] 20.0-20.9, adult
CPT/HCPCS: 36415; 70450; 71010; 76705; 80048; 80053; 80305; 81001; 82140; 82150; 83036; 83605; 83690; 83735; 83880; 84100; 84439; 84443; 84484; 85025; 85610; 85730; 86677; 86704; 86706; 86708; 86709; 86803; 87040; 87081; 87086; 87340; 93005; 99285; C9113; G0482; J1200; J2250; J2354; J2405; J2543; J3010; J3475; J7030; Q0092